=== PATIENT | male | born 1965 | race Caucasian/White ===

== ENCOUNTER 2020-05-22 06:00 | Outpatient (RCR) | payer OTHER, SELFPAY | END 2020-05-25 23:59 | disposition home or self-care (01) | LOC: GPT 06:00 | PROVIDERS: PCP Family Medicine; Referring Provider Family Medicine; Visit Provider Family Medicine | DX: S49.90XD Unspecified injury of shoulder and upper arm, unspecified arm, subsequent encounter (principal); X58.XXXD Exposure to other specified factors, subsequent encounter | CPT/HCPCS: 97032; 97110; 97161; 97530 ==

== ENCOUNTER 2020-05-26 06:00 | Outpatient (RCR) | payer OTHER, SELFPAY | END 2020-06-25 23:59 | disposition home or self-care (01) | LOC: GPT 06:00 | PROVIDERS: PCP Family Medicine; Referring Provider Family Medicine; Visit Provider Family Medicine | DX: S49.90XD Unspecified injury of shoulder and upper arm, unspecified arm, subsequent encounter (principal); X58.XXXD Exposure to other specified factors, subsequent encounter | CPT/HCPCS: 97032; 97110; 97112; 97530; G0283 ==

== ENCOUNTER 2020-06-26 06:00 | Outpatient (RCR) | payer OTHER, SELFPAY | END 2020-07-25 23:59 | disposition home or self-care (01) | LOC: GPT 06:00 | PROVIDERS: PCP Family Medicine; Referring Provider Family Medicine; Visit Provider Family Medicine | DX: S49.90XD Unspecified injury of shoulder and upper arm, unspecified arm, subsequent encounter (principal); X58.XXXD Exposure to other specified factors, subsequent encounter | CPT/HCPCS: 97110; 97530 ==